=== PATIENT | female | born 1990 | race Caucasian/White ===

== ENCOUNTER → 2019-11-15 11:52 | Outpatient (BNVA) | payer MEDICAID, SELFPAY | PROVIDERS: Visit Provider Nurse Practitioner Family | DX: N93.9 Abnormal uterine and vaginal bleeding, unspecified (principal); Z13.6 Encounter for screening for cardiovascular disorders; Z00.00 Encounter for general adult medical examination without abnormal findings | CPT/HCPCS: 80053; 80061; 84443; 85025 ==

== ENCOUNTER 2019-12-02 13:24 | Emergency (ER) | payer OTHER, MEDICAID, SELFPAY ==
[2019-12-02 13:27] VITALS: BP 118/96; PULSE 127; RESP 16; TEMP 37.3; O2SAT 99; BMI 18.8
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
[2019-12-02] MEDS: LORazepam 1 mg Tablet PO (14:22)
--- NOTE | 2019-12-02 16:29 | PC.NURSE ---
PT GIVEN SANDWICH AND COKE TO DRINK AT THIS. PT WAS GIVEN A CUP FOR A URINE SPECIMEN AT THIS TIME ALSO.
[2019-12-02 17:03] LABS: Basophils # 0.1 10^3/uL (0.0-0.1); Basophils % 0.6 %; Eosinophils # 0.1 10^3/uL (0.0-0.8); Eosinophils % 0.5 %; Hematocrit 39.3 % (37.0-47.0); Hemoglobin 12.9 g/dL (11.5-15.3); Lymphocytes # 2.6 10^3/uL (0.8-4.8); Mean Corpuscular HGB Conc 32.8 g/dL (30.0-36.0); Mean Corpuscular Hemoglobin 26.3 pg (28.0-34.0); Mean Corpuscular Volume 80.2 fL (81-99); Mean Platelet Volume 9.5 fL (7.4-10.4); Monocytes # 0.8 10^3/uL (0.2-0.9); Monocytes % 6.8 %; Neutrophils # 8.6 10^3/uL (1.8-7.7); Neutrophils % 70.7 %; Nucleated Red Blood Cells % 0 %; Platelet Count 419 10^3/cmm (130-400); Red Cell Distribution Width 13.6 % (12.1-15.1); White Blood Count 12.2 10^3/uL (4.0-10.0)
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
[2019-12-02 17:22] LABS: Alanine Aminotransferase 11 U/L (0-33); Albumin Level 4.7 g/dL (3.5-5.2); Alkaline Phosphatase 96 IU/L (35-105); Anion Gap 20.2 (5-19); Aspartate Amino Transferase 15 U/L (0-32); Blood Urea Nitrogen 15 mg/dL (6-20); Calcium 9.8 mg/dL (8.5-10.5); Carbon Dioxide 20 mmol/L (22-29); Chloride 98 mmol/L (98-107); Creatinine Clr Calc Pharmacy 99.6918; Globulin 3.2 g/dL (1.3-4.6); Glomerular Filtration Rate 99.6 mL/min (90-130); Glucose 119 mg/dL (65-115); Potassium 3.2 mmol/L (3.5-5.1); Sodium 135 mmol/L (136-145); Total Bilirubin 0.4 mg/dL (0.15-1.2); Total Protein 7.9 g/dL (6.6-8.7)
[2019-12-02] MEDS: ondansetron 4 MG Tablet PO (17:28)
[2019-12-02 17:44] LABS: HIV 1 & 2 Antibody Non-Reactive (Non-Reactiv); HIV 1 & 2 Antigen Non-Reactive (Non-Reactiv)
[2019-12-02] MEDS: emtricitabine/tenofovir 200 mg-300 mg TABLET 1 TAB PO (17:47)
[2019-12-02] MEDS: azithromycin 250 mg Tablet 1000 MG PO ×2 (17:47)
[2019-12-02] MEDS: metroNIDAZOLE 500 MG Tablet 2000 MG PO (17:47)
[2019-12-02] MEDS: tetanus-dipt-pertussis 0.5 mL SDV IM (17:47)
--- NOTE | 2019-12-02 18:06 | PC.NURSE ---
pt having a difficult time swalling PO meds. Nurse crushed pills and put them in pudding. Pt immediately vomited up medication. ED provider notified-will put more med orders in
[2019-12-02 18:40] VITALS: BP 122/80; PULSE 91; O2SAT 98
== END 2019-12-02 18:40 | disposition home or self-care (01) ==
PROVIDERS: Emergency Provider Nurse Practitioner Family; PCP Family Medicine
DX: T74.21XA Adult sexual abuse, confirmed, initial encounter (principal)
CPT/HCPCS: 36415; 80053; 81025; 85025; 87806; 90471; 90715; 96365; 99281; J0696; J2001; Q0144; Q0162

== ENCOUNTER → 2019-12-16 10:30 | Outpatient (BNVA) | payer MEDICAID, OTHER, SELFPAY | PROVIDERS: PCP Family Medicine; Visit Provider Nurse Practitioner Family | DX: Z51.81 Encounter for therapeutic drug level monitoring (principal); Y09 Assault by unspecified means; R11.0 Nausea | CPT/HCPCS: 80053; 85025; 87491; 87591; 87661 ==

== ENCOUNTER → 2019-12-30 09:25 | Outpatient (BNVA) | payer MEDICAID, OTHER, SELFPAY | PROVIDERS: PCP Family Medicine; Visit Provider Nurse Practitioner Family | DX: Z51.81 Encounter for therapeutic drug level monitoring (principal) | CPT/HCPCS: 80053; 85025 ==

== ENCOUNTER → 2020-01-13 11:05 | Outpatient (BNVA) | payer MEDICAID, OTHER, SELFPAY | PROVIDERS: PCP Family Medicine; Visit Provider Nurse Practitioner Family | DX: Z51.81 Encounter for therapeutic drug level monitoring (principal); Z23 Encounter for immunization | CPT/HCPCS: 80053; 85025; 87806 ==

== ENCOUNTER → 2020-02-20 11:06 | Outpatient (BNVA) | payer MEDICAID, SELFPAY | PROVIDERS: PCP Nurse Practitioner Family; Visit Provider Nurse Practitioner Family | DX: N93.9 Abnormal uterine and vaginal bleeding, unspecified (principal) | CPT/HCPCS: 86705; 86706; 86709; 86803; 87340; 87806 ==

== ENCOUNTER → 2020-05-17 09:52 | Outpatient (BNVA) | payer MEDICAID, SELFPAY | PROVIDERS: PCP Nurse Practitioner Family; Visit Provider Nurse Practitioner Family | DX: Z20.2 Contact with and (suspected) exposure to infections with a predominantly sexual mode of transmission (principal); T74.21XD Adult sexual abuse, confirmed, subsequent encounter; Y07.50 Unspecified non-family member, perpetrator of maltreatment and neglect; Z13.31 Encounter for screening for depression | CPT/HCPCS: 86705; 86706; 86709; 86803; 87340; 87806 ==

== ENCOUNTER → 2020-07-03 15:56 | Outpatient (BNVA) | payer MEDICAID, SELFPAY | PROVIDERS: PCP Nurse Practitioner Family; Visit Provider Nurse Practitioner Family | DX: M79.631 Pain in right forearm (principal) | CPT/HCPCS: 73090 ==

== ENCOUNTER → 2021-03-07 10:01 | Outpatient (BNVA) | payer MEDICAID, SELFPAY | PROVIDERS: PCP Nurse Practitioner Family; Visit Provider Nurse Practitioner Family | DX: Z00.00 Encounter for general adult medical examination without abnormal findings (principal); Z13.6 Encounter for screening for cardiovascular disorders | CPT/HCPCS: 80053; 80061; 84443; 85025 ==

== ENCOUNTER → 2022-02-07 12:02 | Outpatient (BNVA) | payer MEDICAID, SELFPAY | PROVIDERS: PCP Nurse Practitioner Family; Visit Provider Nurse Practitioner Family | DX: F79 Unspecified intellectual disabilities (principal); Z13.6 Encounter for screening for cardiovascular disorders; J32.9 Chronic sinusitis, unspecified; R05.9 Cough, unspecified; J30.2 Other seasonal allergic rhinitis; M25.532 Pain in left wrist; H00.019 Hordeolum externum unspecified eye, unspecified eyelid | CPT/HCPCS: 80053; 80061 ==

== ENCOUNTER → 2023-05-28 12:01 | Outpatient (BNVA) | payer MEDICAID, SELFPAY | PROVIDERS: PCP Nurse Practitioner Family; Visit Provider Nurse Practitioner Family | DX: J30.2 Other seasonal allergic rhinitis (principal); Z12.4 Encounter for screening for malignant neoplasm of cervix; Z13.6 Encounter for screening for cardiovascular disorders | CPT/HCPCS: 85025; 88175 ==

== ENCOUNTER → 2023-06-04 09:55 | Outpatient (BNVA) | payer MEDICAID, SELFPAY | PROVIDERS: PCP Nurse Practitioner Family; Visit Provider Nurse Practitioner Family | DX: J30.2 Other seasonal allergic rhinitis (principal); Z13.6 Encounter for screening for cardiovascular disorders; Z01.419 Encounter for gynecological examination (general) (routine) without abnormal findings | CPT/HCPCS: 80053; 80061; 84443 ==

== ENCOUNTER → 2023-09-16 11:26 | Outpatient (BNVA) | payer MEDICAID, SELFPAY | PROVIDERS: PCP Nurse Practitioner Family; Visit Provider Nurse Practitioner Family | DX: M25.562 Pain in left knee (principal) | CPT/HCPCS: 73562 ==

== ENCOUNTER → 2024-04-18 10:58 | Outpatient (BNVA) | payer MEDICAID, SELFPAY | PROVIDERS: PCP Nurse Practitioner Family; Visit Provider Nurse Practitioner Family | DX: Z13.6 Encounter for screening for cardiovascular disorders (principal); M25.562 Pain in left knee | CPT/HCPCS: 80053; 80061; 85025 ==

== ENCOUNTER → 2024-06-22 10:48 | Outpatient (BNVA) | payer MEDICAID, SELFPAY | PROVIDERS: PCP Nurse Practitioner Family; Visit Provider Nurse Practitioner Family | DX: R05.9 Cough, unspecified (principal) | CPT/HCPCS: 87400 ==

== ENCOUNTER → 2024-07-04 14:40 | Outpatient (BNVA) | payer MEDICAID, SELFPAY | PROVIDERS: PCP Nurse Practitioner Family; Visit Provider Nurse Practitioner Family | DX: M25.562 Pain in left knee (principal) | CPT/HCPCS: 73562 ==

== ENCOUNTER → 2024-08-03 10:56 | Outpatient (BNVA) | payer MEDICAID, SELFPAY | PROVIDERS: PCP Nurse Practitioner Family; Visit Provider Nurse Practitioner | DX: M25.562 Pain in left knee (principal); M23.52 Chronic instability of knee, left knee; M25.561 Pain in right knee; G89.29 Other chronic pain | CPT/HCPCS: 73560; 73565; 99204 ==

== ENCOUNTER 2024-09-26 06:00 | Outpatient (RCR) | payer MEDICAID, SELFPAY | END 2024-10-04 23:59 | disposition home or self-care (01) | LOC: APT 06:00 | PROVIDERS: Visit Provider Nurse Practitioner | DX: M25.361 Other instability, right knee (principal); M25.362 Other instability, left knee | CPT/HCPCS: 97110; 97161 ==

== ENCOUNTER 2024-10-05 06:00 | Outpatient (RCR) | payer MEDICAID, SELFPAY | END 2024-11-04 23:59 | disposition home or self-care (01) | LOC: APT 06:00 | PROVIDERS: PCP Nurse Practitioner Family; Visit Provider Nurse Practitioner | DX: M25.361 Other instability, right knee (principal); M25.362 Other instability, left knee | CPT/HCPCS: 97110; 97530 ==

== ENCOUNTER → 2024-10-19 11:54 | Outpatient (BNVA) | payer MEDICAID, SELFPAY | PROVIDERS: PCP Nurse Practitioner Family; Visit Provider Nurse Practitioner Family | DX: Z13.6 Encounter for screening for cardiovascular disorders (principal) | CPT/HCPCS: 80053; 80061; 84443; 85025 ==

== ENCOUNTER → 2024-11-02 10:08 | Outpatient (BNVA) | payer MEDICAID, SELFPAY | PROVIDERS: PCP Nurse Practitioner Family; Visit Provider Nurse Practitioner | DX: M23.52 Chronic instability of knee, left knee (principal); M25.562 Pain in left knee | CPT/HCPCS: 99213 ==

== ENCOUNTER 2024-11-05 06:00 | Outpatient (RCR) | payer MEDICAID, SELFPAY | END 2024-12-02 23:59 | disposition home or self-care (01) | LOC: APT 06:00 | PROVIDERS: PCP Nurse Practitioner Family; Visit Provider Nurse Practitioner | DX: M25.361 Other instability, right knee (principal); M25.362 Other instability, left knee | CPT/HCPCS: 97110; 97530 ==

== ENCOUNTER → 2024-11-10 11:29 | Outpatient (BNVA) | payer MEDICAID, SELFPAY | PROVIDERS: PCP Nurse Practitioner Family; Visit Provider Nurse Practitioner Family | DX: D72.829 Elevated white blood cell count, unspecified (principal) | CPT/HCPCS: 80503; 85025 ==

== ENCOUNTER 2024-11-16 23:00 | Emergency (ER) | payer MEDICAID, SELFPAY ==
[2024-11-16 23:06] VITALS: BP 140/83; PULSE 98; RESP 18; TEMP 36.9; O2SAT 98; BMI 27.4
[2024-11-16 23:48] LABS: Basophils # 0.1 10^3/uL (0.0-0.1); Basophils % 0.5 %; Eosinophils # 0.1 10^3/uL (0.0-0.8); Eosinophils % 1.1 %; Hematocrit 33.6 % (36-47); Lymphocytes # 2.6 10^3/uL (0.8-4.8); Mean Corpuscular HGB Conc 31.3 g/dL (30-55); Mean Corpuscular Hemoglobin 22.4 pg (27-33); Mean Corpuscular Volume 71.8 fl (85-98); Mean Platelet Volume 9.1 fL (7.4-10.4); Monocytes % 7.5 %; Neutrophils # 9.11 10^3/uL (1.8-7.7); Neutrophils % 70.4 %; Nucleated Red Blood Cells % 0 %; Platelet Count 496 10^3/cmm (157-399); Red Blood Count 4.68 10^6/uL (3.85-5.65); Red Cell Distribution Width 16.5 % (12.1-15.1); White Blood Count 12.95 10^3/uL (3.29-11.43)
[2024-11-16 23:50] LABS: HCG Qualitative Urine. Negative (Negative)
[2024-11-17 00:02] LABS: Bilirubin Urine Negative (Negative); Blood Urine Negative (Negative); Glucose Urine UA Negative (Normal); Ketones Urine Negative (Negative); Leukocyte Esterase Urine Negative (Negative); Nitrate Urine Negative (Negative); Protein Urine Negative (Negative); Specific Gravity, Urine 1.009 (1.005-1.030); Urine Appearance Clear (CLEAR); Urine Color Yellow (Yellow); Urobilinogen Urine 0.2 mg/dL (Negative)
[2024-11-17 00:07] LABS: Alanine Aminotransferase 9 U/L (0-33); Albumin Level 4.1 g/dL (3.5-5.2); Alkaline Phosphatase 123 U/L (35-105); Anion Gap 18.6 (5-19); Aspartate Amino Transferase 12 U/L (0-32); Bacteria Urine None Seen /hpf; Blood Urea Nitrogen 12 mg/dL (6-20); Calcium 9.7 mg/dL (8.5-10.5); Carbon Dioxide 21 mmol/L (22-29); Chloride 101 mmol/L (98-107); Creatinine Clr Calc Pharmacy 115.7396; Globulin 3.5 g/dL (1.3-4.6); Glomerular Filtration Rate 96.4 mL/min (90-130); Glucose 114 mg/dL (65-115); Hyaline Casts Urine 0-4 /lpf; Osmolality Calculated 285 mOsm/kg (285-295); Potassium 3.6 mmol/L (3.5-5.1); RBC Urine 0-2 /hpf (0-2); Sodium 137 mmol/L (136-145); Squamous Epithelial Cell Urine 0-5 /hpf (0-5); Total Bilirubin 0.2 mg/dL (0.15-1.2); Total Protein 7.6 g/dL (6.6-8.7); WBC Urine 0-5 /hpf (0-5)
--- NOTE | 2024-11-17 00:49 | CTR_ITS ---
PROCEDURE INFORMATION: Exam: CT Abdomen And Pelvis With Contrast Exam date and time: 11/17/2024 1:05 AM Age: 34 years old Clinical indication: Abdominal pain; Periumbilical; Additional info: Rlq pain TECHNIQUE: Imaging protocol: Computed tomography of the abdomen and pelvis with contrast. Radiation optimization: All CT scans at this facility use at least one of these dose optimization techniques: automated exposure control; mA and/or kV adjustment per patient size (includes targeted exams where dose is matched to clinical indication); or iterative reconstruction. Contrast material: OMNI 350; Contrast volume: 100 ml; Contrast route: INTRAVENOUS (IV); COMPARISON: No relevant prior studies available. RADIATION DOSE METRICS: Total DLP (mGy-cm): 606.63 FINDINGS: Lungs: The lung bases are clear. Heart: Heart size is within normal limits. There is no pericardial effusion or pericardial thickening. Liver: The liver is normal. No hepatic masses are identified. Gallbladder and biliary ducts: The gallbladder is contracted. There is no ductal dilatation. Pancreas: The pancreas is normal. Spleen: The spleen is normal. Adrenal glands: The adrenal glands are normal. Kidneys and ureters: There is normal enhancement of the kidneys. No renal calcifications are identified. There is no hydronephrosis. Stomach and bowel: Fatty infiltration of the wall of the ascending and proximal transverse colon, typically sequela of prior inflammatory change. There is no large or small bowel obstruction. There is no evidence of bowel wall thickening. Appendix: A normal appendix is identified. Intraperitoneal space: No inflammatory changes are identified. There is no free fluid or fluid collection seen. There is no pneumoperitoneum. Vasculature: The aorta is normal in course and caliber. No significant atherosclerotic calcifications are present. Lymph nodes: No enlarged lymph nodes are identified. Urinary bladder: The bladder is unremarkable. Reproductive: The uterus is present. Bones/joints: No acute osseous abnormalities are seen. Soft tissues: Small periumbilical hernia containing only fat. CT/CT abdomen pelvis w con* [id number] IMPRESSION: No acute intra-abdominal or pelvic process.
--- NOTE | 2024-11-17 00:50 | ED_ITS ---
Documented by User: KORY Cole 11/21/24 19:29 HPI - Abdominal Pain 2 General: Chief Complaint: Abdominal Pain Stated Complaint: abd pain Time Seen by Provider: 11/17/24 00:39 Source: patient Mode of arrival: ambulatory Limitations: no limitations History of Present Illness: Patient is a 34-year-old female who presents to the emergency department for right lower quadrant pain beginning earlier this morning. She states it has been intermittent throughout the day, it is made better when she lies flat made worse when she lies on her side. Still has her appendix and gallbladder. She has no other symptoms to report. States that when the pain is at its worst it is a 4/10, states she is here just to make sure it is nothing serious. Vitals within normal limits at this time. She has not taken any medications for her pain. Pain does not radiate and is localized just to the right lower quadrant. She is not reporting any urinary symptoms such as hematuria or dysuria. No vaginal bleeding or other female symptoms. No fever or recent illness. No trauma. MD elicited complaint: abdominal pain Pertinent past history: none Onset (ago): hour(s) Pain Consistency: intermittent Location: RLQ Severity: moderate Radiation: none Exacerbating factors: other (Lying on the side) Relieving factors: other (Lying flat) Associated Symptoms: Reports no associated symptoms; Denies bloating, change in stool character, chills, constipation, diarrhea, dysuria, fever(s), hematochezia, nausea and vomiting Related Data Date of Last Menstrual Period: 11/07/24 Previous Rx's ?Medication ?Instructions ?Recorded acetaminophen 500 mg tablet (Pain 500 mg PO Q6H PRN fe nnamdi or pain 06/22/24 Relief (acetaminophen)) #100 tabs diclofenac sodium 75 mg 75 mg PO BID PRN pain #60 ta bs 08/03/24 tablet,delayed release cetirizine 10 mg tablet (Zyrtec) 10 mg PO DAILY #90 ta bs 10/19/24 fluticasone propionate 50 2 spray intranasal DAILY PRN 10/19/24 mcg/actuation nasal allergy symptoms #16 grams spray,suspension (Flonase Allergy Relief) vit 168-iron 27 mg-folic 1 cap PO .ONCE DAILY #90 caps 11/18/24 acid 800 mcg-omega3 235 mg capsule (One-A-Day -1) Allergies Allergy/AdvReac Type Severity Reaction Status Date / Time No Known Allergies Allergy Verified 11/16/24 23:10 Review of Systems 2 General: Reports: 10 or more systems reviewed and unremarkable except in HPI and below Const: Denies: fever(s), chills, change in appetite, change in weight or diaphoresis ENMT: Denies: throat pain or hoarseness Card: Denies: chest pain, palpitations or lightheadedness Resp: Denies: dyspnea, productive cough or wheezing GI: Reports: abdominal pain; Denies: nausea, vomiting, diarrhea, constipation, bloating, change in stool character or hematochezia : Denies: flank pain, difficulty voiding, dysuria, urinary frequency or urinary urgency Musc: Denies: neck pain or back pain Skin/Breast: Denies: rash or new lesions Neuro: Denies: headache(s) or dizziness PFSH ED 2 PFSH: Medical History Anemia Surgical History No pertinent past surgical history Family History Father Diabetes Hypertension Stroke Heart disease Social History Smoking and tobacco/nicotine status: never used tobacco/nicotine Second hand smoke exposure: No Alcohol intake: never Substance/Drug Use: never Caregiver/support person: Yes Lives independently: No Household members: family Housing: House Marital status: Single service: No Current occupational status: disabled Current gender identity: Female Special matthew needs: No Agree to transfusion: Yes Female Reproductive History: Date of last menstrual period: 11/07/24 Physical Exam 2 Const: COMMON NORMALS: no acute distress, average body habitus, patient oriented x3, no limitations, healthy appearing, alert and well nourished G ENERAL APPEARANCE: cooperative and comfortable ORIENTATION/CONSCIOUSNESS: Yes awake HENMT: COMMON NORMALS: normocephalic, atraumatic, hearing grossly normal bilaterally, external ears normal, Normal external nose present, Normal nasal mucous membranes and turbinates present and moist oral mucous membranes HEAD & SCALP: normocephalic and atraumatic NOSE: Normal external nose present and Normal nasal mucous membranes and turbinates present EXTERNAL EAR: Yes external ears normal Eye: COMMON NORMALS: Equal, round and reactive pupils present, EOMs intact bilaterally, conjunctivae normal and normal visual petty by confrontation C ONJUNCTIVA: Yes conjunctivae normal PUPIL: Yes Equal, round and reactive pupils present Neck/C-Spine: COMMON NORMALS: full ROM, supple, no meningeal signs and no JVD Resp: COMMON NORMALS: normal respiratory effort, No retractions, No use of accessory muscles and clear to auscultation bilaterally AUSCULTATION: clear to auscultation bilaterally, no crackles, no rales, no rhonchi and no wheezes Cardio: COMMON NORMALS: no JVD, regular rate, regular rhythm, S1 normal heart sound present, S2 normal heart sound present, No gallops present (Cardio), No clicks present (Cardio), No murmurs present (Cardio), No rub (Cardio) and Peripheral pulses 2+ throughout RATE: regular rate RHYTHM: regular rhythm HEART SOUNDS: S1 normal heart sound present and S2 normal heart sound present PERIPHERAL PULSES: Peripheral pulses 2+ throughout GI: COMMON NORMALS: Normal to inspection, nondistended, normoactive bowel sounds present, Soft to palpation, No hepatosplenomegaly present and no masses AUSCULTATION: Yes normoactive bowel sounds PALPATION: Yes Soft to palpation, Yes Tenderness to palpation present (GI) Details: RLQ, No Guarding due to palpation present (GI), No Rigid due to palpation and Yes No hepatosplenomegaly present RECTAL EXAM: deferred OTHER: Negative Rovsing sign, positive McBurney's point tenderness : COMMON NORMALS: Yes no CVA tenderness BLADDER/KIDNEY EXAM: Yes no CVA tenderness Back/Pelvis: COMMON NORMALS: no CVA tenderness Extremity: COMMON NORMALS: normal to inspection and full ROM Neuro: COMMON NORMALS: patient oriented x3, moves all extremities, no focal motor deficits and no sensory deficits noted SENSORIUM/ORIENTATION: Yes alert MENINGEAL SIGNS: Yes no meningeal signs Psych: COMMON NORMALS: mental status grossly normal, cooperative and speech normal SPEECH: Yes normal speech Skin: COMMON NORMALS: no rashes or lesions noted GENERAL SKIN EXAM: no rashes or lesions noted Course 2 Vital Signs: Vital signs: Vital Signs Temperature 98.5 F 11/16/24 23:06 Pulse Rate 94 11/17/24 01:48 Respiratory Rate 16 11/17/24 01:48 Blood Pressure 140/102 11/17/24 01:48 Pulse Oximetry 94 11/17/24 01:48 Oxygen Delivery Me thod Room Air 11/17/24 01:48 MDM - Abdominal Pain Lab Data 11/16/24 23:20 11/16/24 23:20 Labs/Radiology: Radiology Impressions Abdomen/Pelvis CT 11/17/24 00:49 IMPRESSION: No acute intra-abdominal or pelvic process. Laboratory Results WBC 12.95 10^3/uL (3.29-11.43) H 11/16/24 23:20 RBC 4.68 10^6/uL (3.85-5.65) 11/16/24 23:20 Hgb 10.50 g/dL (11.27-16.99) L 11/16/24 23:20 Hct 33.6 % (36-47) L 11/16/24 23:20 MCV 71.8 fl (85-98) L 11/16/24 23:20 MCH 22.4 pg (27-33) L 11/16/24 23:20 MCHC 31.3 g/dL (30-55) 11/16/24 23:20 RDW 16.5 % (12.1-15.1) H 11/16/24 23:20 Plt Count 496 10^3/cmm (157-399) H 11/16/24 23:20 MPV 9.1 fL (7.4-10.4) 11/16/24 23:20 Neut % (Auto) 70.4 % 11/16/24 23:20 Lymph % (Auto) 20.0 % 11/16/24 23:20 [place] % (Auto) 7.5 % 11/16/24 23:20 Eos % (Auto) 1.1 % 11/16/24 23:20 Baso % (Auto) 0.5 % 11/16/24 23:20 Neut # (Auto) 9.11 10^3/uL (1.8-7.7) H 11/16/24 23:20 Lymph # (Auto) 2.6 10^3/uL (0.8-4.8) 11/16/24 23:20 [place] # (Auto) 1.0 10^3/uL (0.2-0.9) H 11/16/24 23:20 Eos # (Auto) 0.1 10^3/uL (0.0-0.8) 11/16/24 23:20 Baso # (Auto) 0.1 10^3/uL (0.0-0.1) 11/16/24 23:20 Nucleated RBC % (auto) 0 % 11/16/24 23:20 Nucleated RBCs # 0.0 /100WBC 11/16/24 23:20 Sodium 137 mmol/L (136-145) 11/16/24 23:20 Potassium 3.6 mmol/L (3.5-5.1) 11/16/24 23:20 Chloride 101 mmol/L (98-107) 11/16/24 23:20 Carbon Dioxide 21 mmol/L (22-29) L 11/16/24 23:20 Anion Gap 18.6 (5-19) 11/16/24 23:20 BUN 12 mg/dL (6-20) 11/16/24 23:20 Creatinine 0.7 mg/dL (0.5-0.9) 11/16/24 23:20 GFR Calculation 96.4 mL/min (90-130) 11/16/24 23:20 Glucose 114 mg/dL (65-115) 11/16/24 23:20 Calculated Osmolality 285 mOsm/kg (285-295) 11/16/24 23:20 Calcium 9.7 mg/dL (8.5-10.5) 11/16/24 23:20 Total Bilirubin 0.2 mg/dL (0.15-1.2) 11/16/24 23:20 AST 12 U/L (0-32) 11/16/24 23:20 ALT 9 U/L (0-33) 11/16/24 23:20 Alkaline Phosphatase 123 U/L (35-105) H 11/16/24 23:20 Total Protein 7.6 g/dL (6.6-8.7) 11/16/24 23:20 Albumin 4.1 g/dL (3.5-5.2) 11/16/24 23:20 Globulin 3.5 g/dL (1.3-4.6) 11/16/24 23:20 HCG, Qual Negative (Negative) 11/16/24 23:20 Urine Color Yellow (Yellow) 11/16/24 23:20 Urine Appearance Clear (CLEAR) 11/16/24 23:20 Urine pH 6.0 (5-7) 11/16/24 23:20 Ur Specific [place] 1.009 (1.005-1.030) 11/16/24 23:20 Urine Protein Negative (Negative) 11/16/24 23:20 Urine Glucose (UA) Negative (Normal) 11/16/24 23:20 Urine Ketones Negative (Negative) 11/16/24 23:20 Urine Blood Negative (Negative) 11/16/24 23:20 Urine Nitrate Negative (Negative) 11/16/24 23:20 Urine Bilirubin Negative (Negative) 11/16/24 23:20 Urine Urobilinogen 0.2 mg/dL (Negative) 11/16/24 23:20 Ur Leukocyte Esterase Negative (Negative) 11/16/24 23:20 Urine RBC 0-2 /hpf (0-2) 11/16/24 23:20 Urine WBC 0-5 /hpf (0-5) 11/16/24 23:20 Ur Squamous Epith Cells 0-5 /hpf (0-5) 11/16/24 23:20 Amorphous Sediment Not Reportable 11/16/24 23:20 Urine Bacteria None seen /hpf (NONE) 11/16/24 23:20 Hyaline Casts 0-4 /lpf H 11/16/24 23:20 All radiology interpretation(s) finalized by discharge Discharge Plan Discharge Patient Disposition: Home Clinical Impression: Abdominal pain Condition: Stable Prescriptions: No Action cetirizine [Zyrtec] 10 mg tablet 10 mg PO DAILY Qty: 90 4RF fluticasone propionate [Flonase Allergy Relief] 50 mcg/actuation spray,suspension 2 spray intranasal DAILY PRN (Reason: allergy symptoms) Qty: 16 5RF Rx Instructions: administer into each nostril acetaminophen [Pain Relief (acetaminophen)] 500 mg tablet 500 mg PO Q6H PRN (Reason: fever or pain) Qty: 100 5RF diclofenac sodium 75 mg tablet,delayed release (DR/EC) 75 mg PO BID PRN (Reason: pain) Qty: 60 5RF Rx Instructions: no ibuprofen One-A-Day -1 27 mg iron- 800 mcg-235 mg capsule 1 cap PO .ONCE DAILY Qty: 90 0RF Discharge Orders: Discharge ED (Routine); Ordered 11/17/24 Ordered By: Mandy Johnson Referrals: Anushka Curtis FNP [Primary Care Provider] - Discharge Diet: Advance as tolerated Discharge Activity: Increase activity as tolerated Patient Instructions: Abdominal Pain (ED), Opioid Safety, Pain Management Activity Restrictions/Additional Instructions: Thank you for choosing [facility] for your healthcare needs today. Please realize this is an emergency room and that we are providing you with a medical screening exam and this may not be complete and all inclusive of all the testing and or work up that you may need to determine your ailment or severity of your illness. You have been screened and evaluated and felt safe for discharge. Health conditions do change or evolve sometimes and as such it is important that you follow up with your Primary Doctor to be re checked, 3-5 days is a general good time frame for follow up. You are always welcome to return to the ED for re assessment if your symptoms are worsening or you have new concerns Print Language: Nigerien Coding Level of Care Code ED Remelt Worker for Chg Fwd Documented by User: Mandy Johnson MD 11/17/24 02:07 HPI - Abdominal Pain 2 General: Chief Complaint: Abdominal Pain Stated Complaint: abd pain Time Seen by Provider: 11/17/24 00:39 Related Data Previous Rx's ?Medication ?Instructions ?Recorded acetaminophen 500 mg tablet (Pain 500 mg PO Q6H PRN fe nnamdi or pain 06/22/24 Relief (acetaminophen)) #100 tabs diclofenac sodium 75 mg 75 mg PO BID PRN pain #60 ta bs 08/03/24 tablet,delayed release cetirizine 10 mg tablet (Zyrtec) 10 mg PO DAILY #90 ta bs 10/19/24 fluticasone propionate 50 2 spray intranasal DAILY PRN 10/19/24 mcg/actuation nasal allergy symptoms #16 grams spray,suspension (Flonase Allergy Relief) vit 168-iron 27 mg-folic 1 cap PO .ONCE DAILY #90 caps 11/18/24 acid 800 mcg-omega3 235 mg capsule (One-A-Day -1) Allergies Allergy/AdvReac Type Severity Reaction Status Date / Time No Known Allergies Allergy Verified 11/16/24 23:10 PFS ED 2 PFSH: Medical History Anemia Surgical History No pertinent past surgical history Family History Father Diabetes Hypertension Stroke Heart disease Social History Smoking and tobacco/nicotine status: never used tobacco/nicotine Second hand smoke exposure: No Alcohol intake: never Substance/Drug Use: never Caregiver/support person: Yes Lives independently: No Household members: family Housing: House Marital status: Single service: No Current occupational status: disabled Current gender identity: Female Special matthew needs: No Agree to transfusion: Yes Course 2 Vital Signs: Vital signs: Vital Signs Temperature 98.5 F 11/16/24 23:06 Pulse Rate 94 11/17/24 01:48 Respiratory Rate 16 11/17/24 01:48 Blood Pressure 140/102 11/17/24 01:48 Pulse Oximetry 94 11/17/24 01:48 Oxygen Delivery Me thod Room Air 11/17/24 01:48 MDM - Abdominal Pain Medical Decision Making Patient has mild leukocytosis so a CT was ordered. This is negative for acute process. Urinalysis is negative. Assessment and plan: Abdominal pain - Discharged home - Discussed plan with patient. Answered any questions. - Evaluation and treatment of this problem were appropriate in the emergency setting. Lab Data 11/16/24 23:20 11/16/24 23:20 Labs/Radiology: Radiology Impressions Abdomen/Pelvis CT 11/17/24 00:49 IMPRESSION: No acute intra-abdominal or pelvic process. Laboratory Results WBC 12.95 10^3/uL (3.29-11.43) H 11/16/24 23:20 RBC 4.68 10^6/uL (3.85-5.65) 11/16/24 23:20 Hgb 10.50 g/dL (11.27-16.99) L 11/16/24 23:20 Hct 33.6 % (36-47) L 11/16/24 23:20 MCV 71.8 fl (85-98) L 11/16/24 23:20 MCH 22.4 pg (27-33) L 11/16/24 23:20 MCHC 31.3 g/dL (30-55) 11/16/24 23:20 RDW 16.5 % (12.1-15.1) H 11/16/24 23:20 Plt Count 496 10^3/cmm (157-399) H 11/16/24 23:20 MPV 9.1 fL (7.4-10.4) 11/16/24 23:20 Neut % (Auto) 70.4 % 11/16/24 23:20 Lymph % (Auto) 20.0 % 11/16/24 23:20 [place] % (Auto) 7.5 % 11/16/24 23:20 Eos % (Auto) 1.1 % 11/16/24 23:20 Baso % (Auto) 0.5 % 11/16/24 23:20 Neut # (Auto) 9.11 10^3/uL (1.8-7.7) H 11/16/24 23:20 Lymph # (Auto) 2.6 10^3/uL (0.8-4.8) 11/16/24 23:20 [place] # (Auto) 1.0 10^3/uL (0.2-0.9) H 11/16/24 23:20 Eos # (Auto) 0.1 10^3/uL (0.0-0.8) 11/16/24 23:20 Baso # (Auto) 0.1 10^3/uL (0.0-0.1) 11/16/24 23:20 Nucleated RBC % (auto) 0 % 11/16/24 23:20 Nucleated RBCs # 0.0 /100WBC 11/16/24 23:20 Sodium 137 mmol/L (136-145) 11/16/24 23:20 Potassium 3.6 mmol/L (3.5-5.1) 11/16/24 23:20 Chloride 101 mmol/L (98-107) 11/16/24 23:20 Carbon Dioxide 21 mmol/L (22-29) L 11/16/24 23:20 Anion Gap 18.6 (5-19) 11/16/24 23:20 BUN 12 mg/dL (6-20) 11/16/24 23:20 Creatinine 0.7 mg/dL (0.5-0.9) 11/16/24 23:20 GFR Calculation 96.4 mL/min (90-130) 11/16/24 23:20 Glucose 114 mg/dL (65-115) 11/16/24 23:20 Calculated Osmolality 285 mOsm/kg (285-295) 11/16/24 23:20 Calcium 9.7 mg/dL (8.5-10.5) 11/16/24 23:20 Total Bilirubin 0.2 mg/dL (0.15-1.2) 11/16/24 23:20 AST 12 U/L (0-32) 11/16/24 23:20 ALT 9 U/L (0-33) 11/16/24 23:20 Alkaline Phosphatase 123 U/L (35-105) H 11/16/24 23:20 Total Protein 7.6 g/dL (6.6-8.7) 11/16/24 23:20 Albumin 4.1 g/dL (3.5-5.2) 11/16/24 23:20 Globulin 3.5 g/dL (1.3-4.6) 11/16/24 23:20 HCG, Qual Negative (Negative) 11/16/24 23:20 Urine Color Yellow (Yellow) 11/16/24 23:20 Urine Appearance Clear (CLEAR) 11/16/24 23:20 Urine pH 6.0 (5-7) 11/16/24 23:20 Ur Specific [place] 1.009 (1.005-1.030) 11/16/24 23:20 Urine Protein Negative (Negative) 11/16/24 23:20 Urine Glucose (UA) Negative (Normal) 11/16/24 23:20 Urine Ketones Negative (Negative) 11/16/24 23:20 Urine Blood Negative (Negative) 11/16/24 23:20 Urine Nitrate Negative (Negative) 11/16/24 23:20 Urine Bilirubin Negative (Negative) 11/16/24 23:20 Urine Urobilinogen 0.2 mg/dL (Negative) 11/16/24 23:20 Ur Leukocyte Esterase Negative (Negative) 11/16/24 23:20 Urine RBC 0-2 /hpf (0-2) 11/16/24 23:20 Urine WBC 0-5 /hpf (0-5) 11/16/24 23:20 Ur Squamous Epith Cells 0-5 /hpf (0-5) 11/16/24 23:20 Amorphous Sediment Not Reportable 11/16/24 23:20 Urine Bacteria None seen /hpf (NONE) 11/16/24 23:20 Hyaline Casts 0-4 /lpf H 11/16/24 23:20 Discharge Plan Discharge Patient Disposition: Home Clinical Impression: Abdominal pain Condition: Stable Prescriptions: No Action cetirizine [Zyrtec] 10 mg tablet 10 mg PO DAILY Qty: 90 4RF fluticasone propionate [Flonase Allergy Relief] 50 mcg/actuation spray,suspension 2 spray intranasal DAILY PRN (Reason: allergy symptoms) Qty: 16 5RF Rx Instructions: administer into each nostril acetaminophen [Pain Relief (acetaminophen)] 500 mg tablet 500 mg PO Q6H PRN (Reason: fever or pain) Qty: 100 5RF diclofenac sodium 75 mg tablet,delayed release (DR/EC) 75 mg PO BID PRN (Reason: pain) Qty: 60 5RF Rx Instructions: no ibuprofen One-A-Day -1 27 mg iron- 800 mcg-235 mg capsule 1 cap PO .ONCE DAILY Qty: 90 0RF Discharge Orders: Discharge ED (Routine); Ordered 11/17/24 Ordered By: Mandy Johnson Referrals: Anushka Curtis FNP [Primary Care Provider] - Discharge Diet: Advance as tolerated Discharge Activity: Increase activity as tolerated Patient Instructions: Abdominal Pain (ED), Opioid Safety, Pain Management Activity Restrictions/Additional Instructions: Thank you for choosing [facility] for your healthcare needs today. Please realize this is an emergency room and that we are providing you with a medical screening exam and this may not be complete and all inclusive of all the testing and or work up that you may need to determine your ailment or severity of your illness. You have been screened and evaluated and felt safe for discharge. Health conditions do change or evolve sometimes and as such it is important that you follow up with your Primary Doctor to be re checked, 3-5 days is a general good time frame for follow up. You are always welcome to return to the ED for re assessment if your symptoms are worsening or you have new concerns Print Language: Nigerien Coding Level of Care Code ED Remelt Worker for Mita De La Fuente
[2024-11-17 01:48] VITALS: BP 140/102; PULSE 94; RESP 16; O2SAT 94
[2024-11-17] MEDS: iohexol 350 mg/mL 500 mL Btl (per mL) IV (02:14)
== END 2024-11-17 02:35 | disposition home or self-care (01) ==
PROVIDERS: Emergency Provider Emergency Medicine; PCP Nurse Practitioner Family
DX: R10.31 Right lower quadrant pain (principal)
CPT/HCPCS: 74177; 80053; 81001; 81025; 85025; 99285

== ENCOUNTER → 2024-12-28 10:45 | Outpatient (BNVA) | payer MEDICAID, SELFPAY | PROVIDERS: PCP Nurse Practitioner Family; Visit Provider Nurse Practitioner | DX: M23.52 Chronic instability of knee, left knee (principal) | CPT/HCPCS: 99213 ==